=== PATIENT | female | born 1975 | race Caucasian/White ===

== ENCOUNTER 2017-11-12 20:01 | Emergency (ER) | payer BC ==
[2017-11-12] MEDS ORDERED: diphenhydrAMINE 50 MG/ML VIAL ONE (21:07)
[2017-11-12] MEDS ORDERED: Ketorolac Tromethamine 30 MG/ML VIAL ONE (21:07)
[2017-11-12] MEDS ORDERED: Lorazepam 2 MG/ML VIAL ONE (21:07)
[2017-11-12] MEDS ORDERED: Metoclopramide HCl 10 MG/2 ML VIAL ONE (21:07)
[2017-11-12] MEDS ORDERED: Sodium Chloride 0.9% 1,000 ML ONE (21:07)
== END 2017-11-12 23:24 | disposition home or self-care (01) ==
LOC: NAV ERS 20:01
DX: G43.909 Migraine, unspecified, not intractable, without status migrainosus (principal)
CPT/HCPCS: 96365; 96366; 96375; J1200; J1885; J2060; J2765; J7050